=== PATIENT | female | born 1965 | race African-American/Black ===

== ENCOUNTER 2016-12-15 09:26 | Emergency (ER) | payer BC ==
[2016-12-15 09:30] VITALS: BP 155/91; PULSE 80; TEMP 98.3; BMI 37.9
[2016-12-15] MEDS ORDERED: DEXAMETHASONE 4 MG TABLET (FP) PO ONE (10:19)
--- NOTE | 2016-12-15 10:19 | PDOC ---
History of Present Illness - General Chief Complaint: Bite Stated Complaint: BITE/ SWELLING Time Seen by Provider: 12/15/16 09:46 - History of Present Illness Initial Comments: 12/15/16 10:19 CHIEF COMPLAINT: insect bites HISTORY OF PRESENT ILLNESS: 51 yo F with no PMH presents to [facility] with multiple insect bites all over body. Patient states she just recently moved into a new house four days ago and developed these bites all over her body. The bites are very itchy and red. Patient denies any fever, nausea, vomiting, diarrhea, pain. No recent travel or sick contacts. PAST MEDICAL HISTORY: Denies past medical history FAMILY HISTORY: Denies SOCIAL HISTORY: Denies tobacco, alcohol, illicit drug use. SURGICAL HISTORY: Denies ALLERGIES: pCN REVIEW OF SYSTEMS General/Constitutional: Denies fever or chills. Denies weakness, weight change. HEENT: Denies change in vision. Denies ear pain or discharge. Denies sore throat. Cardiovascular: Denies chest pain or shortness of breath. Respiratory: Denies cough, wheezing, or hemoptysis. Gastrointestinal: Denies nausea, vomiting, diarrhea or constipation. Denies rectal bleeding. Genitourinary: Denies dysuria, frequency, or change in urination. Musculoskeletal: Denies joint or muscle swelling or pain. Denies neck or back pain. Skin and breasts: Bites all over. PHYSICAL EXAM General Appearance: Well-appearing, appropriately dressed. No apparent distress , no intoxication. Respiratory/Chest: Lungs CTAB. Cardiovascular: RRR. S1, S2. Integumentary: Multiple insect bites to entire body. Appropriate color, dry, warm. No cyanosis, erythema, jaundice or rash Neurologic: mechatronics technician II-XII intact. Fully oriented, alert. Appropriate mood/affect. Motor strength 5/5. No appreciable EOM palsy, facial droop or sensory deficit. 12/15/16 16:02 Past History - Past Medical History Allergies/Adverse Reactions: Allergies Allergy/AdvReac Type Severity Reaction Status Date / Time Penicillins Allergy Verified 12/15/16 09:30 Home Medications: Ambulatory Orders Diphenhydramine HCl [Benadryl -] 25 mg PO Q6H PRN #40 capsule 12/15/16 Triamcinolone 0.1% Cream [Aristocort 0.1% Cream -] 1 applic TP TID #1 tube 12/15 Diabetes: Yes HTN: Yes Hypercholesterolemia: Yes - Psycho/Social/Smoking Cessation Hx Suicidal Ideation: No Smoking History: Never smoked Information on smoking cessation initiated: No Hx Alcohol Use: No Drug/Substance Use Hx: No Substance Use Type: None *Physical Exam - Vital Signs Last Vital Signs Temp Pulse Resp BP Pulse Ox 98.3 F 80 18 155/91 98 12/15/16 09:28 12/15/16 09:28 12/15/16 09:28 12/15/16 09:28 12/15/16 09:28 Medical Decision Making - Medical Decision Making 12/15/16 16:03 51 yo F with no PMH presents to [facility] with insect bites all over body after moving to new home. Bites consistent with bedbug bites. -Decadron 10 mg -Benadryl po Triamcinolone cream rx Advised patient to f/u with derm and to contact [employer] arch[employer]. Advised patient of signs and symptoms for return to [facility]; patient verbalized understanding and agrees to plan. 12/15/16 16:04 *DC/Admit/Observation/Transfer Diagnosis at time of Disposition: Insect bite Qualifiers: Encounter type: initial encounter Qualified Code(s): W57.XXXA - Bitten or stung by nonvenomous insect and other nonvenomous arthropods, initial encounter - Discharge Dispostion Disposition: HOME Condition at time of disposition: Stable Admit: No - Prescriptions Prescriptions: Triamcinolone 0.1% Cream [Aristocort 0.1% Cream -] 1 applic TP TID #1 tube Diphenhydramine HCl [Benadryl -] 25 mg PO Q6H PRN #40 capsule PRN Reason: For Itching - Referrals Referrals: Didi Cook MD [Staff Physician] - - Patient Instructions Printed Discharge Instructions: DI for Insect Bites and Stings Additional Instructions: Please take medication as prescribed and follow up with certified physician's assistant if symptoms persist past 5 days. If you experience any fever, nausea, vomiting, diarrhea, or any new or worsening symptoms, please return to the ER.
[2016-12-15] MEDS ORDERED: diphenhydrAMINE HCL 25 MG CAPSULE (FP) PO ONE ×2 (10:21→10:23)
[2016-12-15] MEDS ORDERED: DEXAMETHASONE SOD PHOSPHATE 10 MG/1 ML VIAL ONE (10:23)
== END 2016-12-15 10:28 | disposition home or self-care (01) ==
LOC: JERFT 09:26
DX: T14.8 Other injury of unspecified body region (principal); W57.XXXA Bitten or stung by nonvenomous insect and other nonvenomous arthropods, initial encounter; Y93.89 Activity, other specified; Y92.018 Other place in single-family (private) house as the place of occurrence of the external cause; I10 Essential (primary) hypertension; E11.9 Type 2 diabetes mellitus without complications; E78.00 Pure hypercholesterolemia, unspecified
CPT/HCPCS: 99281-25